=== PATIENT | male | born 1935 | race Caucasian/White ===

== ENCOUNTER 2017-10-20 12:36 | Outpatient (CLI) | payer MEDICARE, OTHER ==
[~2017-10-20 12:36] MED LIST: ASPI-1265 PO; DICL100G15 TP; DOCU100C40 PO; FERR325T28 PO; HYDR-3964 PO; LISI-600 PO; MELA1TAB28 PO; PRAV40TA65 PO
== END 2017-10-20 23:59 | disposition home or self-care (01) ==
LOC: RAD 12:36
PROVIDERS: ATTEND Family Medicine
DX: R13.12 Dysphagia, oropharyngeal phase (principal); R49.0 Dysphonia; R47.1 Dysarthria and anarthria; K22.0 Achalasia of cardia; I10 Essential (primary) hypertension; J44.9 Chronic obstructive pulmonary disease, unspecified; E11.9 Type 2 diabetes mellitus without complications; Z79.82 Long term (current) use of aspirin
CPT/HCPCS: 74230